=== PATIENT | female | born 1940 | race Caucasian/White ===

== ENCOUNTER 2022-02-23 16:57 | Emergency (ER) | payer MEDICARE, OTHER ==
--- NOTE | 2022-02-23 18:29 | ED ---
General Adult HPI - General Source: patient Mode of arrival: wheelchair Limitations: no limitations <Henrik Waite - Last Filed: 02/23/22 19:18> <Andrea Whitten - Last Filed: 02/24/22 07:08> <Greg Moreno Leonora - Last Filed: 02/24/22 14:36> <Rory Razo - Last Filed: 02/25/22 07:59> <Bora Mills - Last Filed: 02/28/22 15:24> - General Chief complaint: Psychiatric Symptoms Stated complaint: Petition Time Seen by Provider: 02/23/22 17:45 - History of Present Illness Initial comments: Dictation was produced using [employer] dictation software. please excuse any grammatical, word or spelling errors. Chief Complaint: 81-year-old female addition for EPS evaluation History of Present Illness: 81-year-old female presents to the emergency department via dictation. Patient allegedly has psychiatric history. She was petitioned by her cousin and guardian. Patient states that she does not schizophrenia and doesn't believe she needs to be taking psychiatric medications. Patient has no other complaints. The ROS documented in this emergency department record has been reviewed and co nfirmed by me. Those systems with pertinent positive or negative responses have been documented in the HPI. All other systems are other negative and/or noncontributory. PHYSICAL EXAM: General Impression: Alert and oriented x3, not in acute distress HEENT: Normocephalic atraumatic, extra-ocular movements intact, pupils equal and reactive to light bilaterally, mucous membranes moist. Cardiovascular: Heart regular rate and rhythm Chest: Able to complete full sentences, no retractions, no tachypnea Abdomen: abdomen soft, non-tender, non-distended, no organomegaly Musculoskeletal: Pulses present and equal in all extremities, no peripheral edema Motor: no focal deficits noted Neurological: CN II-XII grossly intact, no focal motor or sensory deficits noted Skin: Intact with no visualized rashes Psych: Normal affect and mood ED course: 81-year-old pleasant female presents to the ER for psych evaluation. Patient allegedly has history of psych disease. Vital Signs upon arrival are within acceptable limits. Patient is well-appearing at bedside. Labs unremarkable. Patient medically cleared for EPS evaluation. (Henrik Waite) - Related Data Allergies Allergy/AdvReac Type Severity Reaction Status Date / Time amoxicillin Allergy Unknown Verified 02/25/22 09:57 Penicillins Allergy Unknown Verified 02/25/22 09:57 Review of Systems ROS Other: All systems not noted in ROS Statement are negative. <Henrik Waite - Last Filed: 02/23/22 19:18> ROS Other: All systems not noted in ROS Statement are negative. <Andrea Whitten - Last Filed: 02/24/22 07:08> ROS Other: All systems not noted in ROS Statement are negative. <Greg Moreno - Last Filed: 02/24/22 14:36> ROS Other: All systems not noted in ROS Statement are negative. <Rory Razo - Last Filed: 02/25/22 07:59> ROS Other: All systems not noted in ROS Statement are negative. <Bora Mills - Last Filed: 02/28/22 15:24> ROS Statement: Those systems with pertinent positive or pertinent negative responses have been documented in the HPI. Past Medical History Past Medical History: Diabetes Mellitus, Hypertension History of Any Multi-Drug Resistant Organisms: None Reported Past Surgical History: Tonsillectomy Past Psychological History: Schizoaffective Disorder, Schizophrenia Smoking Status: Never smoker Past Alcohol Use History: None Reported Past Drug Use History: None Reported <Henrik Waite - Last Filed: 02/23/22 19:18> General Exam Limitations: no limitations <Henrik Waite - Last Filed: 02/23/22 19:18> Course Vital Signs 02/23/22 02/24/22 02/24/22 17:32 12:00 17:00 Temperature 98 F Pulse Rate 91 60 68 Respiratory 16 16 16 Rate Blood Pressure 192/102 160/80 136/80 O2 Sat by Pulse 98 98 98 Oximetry 02/24/22 02/25/22 02/25/22 22:09 01:10 02:00 Temperature Pulse Rate 68 Respiratory 16 16 16 Rate Blood Pressure O2 Sat by Pulse 98 Oximetry 02/25/22 02/25/22 02/25/22 03:03 11:00 12:00 Temperature 97.8 F Pulse Rate 63 Respiratory 16 18 20 Rate Blood Pressure 135/76 O2 Sat by Pulse 97 Oximetry 02/25/22 02/25/22 02/26/22 15:30 19:00 13:00 Temperature 97.8 F 98.0 F 98 F Pulse Rate 67 68 66 Respiratory 17 18 18 Rate Blood Pressure 137/78 140/80 136/74 O2 Sat by Pulse 98 99 99 Oximetry 02/27/22 02/27/22 09:03 19:00 Temperature 98.2 F 98.1 F Pulse Rate 74 87 Respiratory 18 17 Rate Blood Pressure 170/80 134/89 O2 Sat by Pulse 98 97 Oximetry Medical Decision Making - Lab Data Result diagrams: 02/23/22 18:33 02/23/22 18:33 <Henrik Waite - Last Filed: 02/23/22 19:18> - Lab Data Result diagrams: 02/23/22 18:33 02/23/22 18:33 <Andrea Whitten - Last Filed: 02/24/22 07:08> - Lab Data Result diagrams: 02/23/22 18:33 02/23/22 18:33 <Greg Moreno - Last Filed: 02/24/22 14:36> - Lab Data Result diagrams: 02/23/22 18:33 02/23/22 18:33 <Rory Razo - Last Filed: 02/25/22 07:59> - Lab Data Result diagrams: 02/23/22 18:33 02/23/22 18:33 <Bora Mills - Last Filed: 02/28/22 15:24> - Medical Decision Making 81-year-old female who had been petitioned for mental health evaluation. She been seen by previous physician and evaluated by EPS. She was felt to be safe for discharge from a mental health perspective. However I was informed by the nurse taking care of the patient that she did not have family able to pick her up and that her guardian was either not able or refusing to take the patient up. I was asked by the administrative nurse in charge to admit the patient to observation with social work on consult in an attempt to resolve these issues. (Greg Moreno) Patient seen by mental health services with plans for psychiatric transfer. Positive clinical certificate completed. (Rory Razo) Patient is pending transfer to inpatient psych. Clinical certification was updated by myself on 02/28/2022. (Gene,Bora) - Lab Data Lab Results 02/23/22 02/23/22 02/25/22 Range/Units 18:33 18:33 07:43 WBC 6.2 (3.8-10.6) k/uL RBC 4.99 (3.80-5.40) m/uL Hgb 15.5 (11.4-16.0) gm/dL Hct 49.0 H (34.0-46.0) % MCV 98.2 (80.0-100.0) fL MCH 31.0 (25.0-35.0) pg MCHC 31.6 (31.0-37.0) g/dL RDW 12.9 (11.5-15.5) % Plt Count 135 L (150-450) k/uL MPV 11.2 Neutrophils % 63 % Lymphocytes % 25 % Monocytes % 6 % Eosinophils % 3 % Basophils % 1 % Neutrophils # 3.9 (1.3-7.7) k/uL Lymphocytes # 1.5 (1.0-4.8) k/uL Monocytes # 0.4 (0-1.0) k/uL Eosinophils # 0.2 (0-0.7) k/uL Basophils # 0.1 (0-0.2) k/uL Manual Slide Review Performed Sodium 144 (137-145) mmol/L Potassium 3.7 (3.5-5.1) mmol/L Chloride 108 H (98-107) mmol/L Carbon Dioxide 23 (22-30) mmol/L Anion Gap 13 mmol/L BUN 18 H (7-17) mg/dL Creatinine 0.80 (0.52-1.04) mg/dL Est GFR (CKD-EPI)AfAm 80 (>60 ml/min/1.73 sqM) Est GFR (CKD-EPI)NonAf 70 (>60 ml/min/1.73 sqM) Glucose 147 H (74-99) mg/dL Calcium 10.0 (8.4-10.2) mg/dL Coronavirus (PCR) Not Detected (Not Detectd) Disposition <Henrik Waite - Last Filed: 02/23/22 19:18> Is patient prescribed a controlled substance at d/c from ED?: No <Andrea Whitten - Last Filed: 02/24/22 07:08> <Greg Moreno - Last Filed: 02/24/22 14:36> Is patient prescribed a controlled substance at d/c from ED?: No Time of Disposition: 08:00 <Rory Razo - Last Filed: 02/25/22 07:59> <Bora Mills - Last Filed: 02/28/22 15:24> Clinical Impression: Delusions, Psychosis Disposition: TRANSFER TO PSYCH HOSP/UNIT Condition: Fair Instructions (If sedation given, give patient instructions): Psychotic Disorder (ED) Referrals: Virgil Collier MD [Primary Care Provider] - 1-2 days
[2022-02-23 18:43] LABS: Basophils # (A) 0.1 k/uL (0-0.2); Basophils % (A) 1 %; Eosinophils # (A) 0.2 k/uL (0-0.7); Eosinophils % (A) 3 %; HGB 15.5 gm/dL (11.4-16.0); Lymphocytes # (A) 1.5 k/uL (1.0-4.8); Lymphocytes % (A) 25 %; MCHC 31.6 g/dL (31.0-37.0); MCV 98.2 fL (80.0-100.0); Mean Platelet Volume 11.2; Monocytes # (A) 0.4 k/uL (0-1.0); Monocytes % (A) 6 %; Neutrophils # (A) 3.9 k/uL (1.3-7.7); Neutrophils % (A) 63 %; Platelet Count 135 k/uL (150-450); RBC 4.99 m/uL (3.80-5.40); RDW 12.9 % (11.5-15.5); WBC 6.2 k/uL (3.8-10.6)
[2022-02-23 18:56] LABS: Potassium 3.7 mmol/L (3.5-5.1)
[2022-02-24] MEDS ORDERED: NALOXONE 0.4 MG/ML 1 ML VIAL IV PRN (14:36)
[2022-02-25] MEDS ORDERED: BISMUTH SUBSALICYLATE 4,192 MG/240 ML BOTTLE PO ONE (14:40)
[2022-02-25] MEDS ORDERED: FLUTICASONE 50MCG/SPRAY NASAL 16GM EA NOSTRIL PRN (15:58)
[2022-02-25] MEDS: metFORMIN 500 MG TAB PO SCH (22:50)
[2022-02-25] MEDS: LATANOPROST 0.005% OPHTH DROPS 2.5 ML BTL BOTH EYES SCH (22:51)
[2022-02-25] MEDS: DORZOLAMIDE HCL 2% DROPS 10 ML BTL BOTH EYES SCH (22:51)
[2022-02-26] MEDS ORDERED: amLODIPine 2.5 MG TAB PO SCH (09:00)
[2022-02-26] MEDS: metFORMIN 500 MG TAB PO SCH ×4 (10:43→20:55)
[2022-02-26] MEDS: amLODIPine 2.5 MG TAB PO SCH (10:43)
[2022-02-26] MEDS: DORZOLAMIDE HCL 2% DROPS 10 ML BTL BOTH EYES SCH ×2 (10:44→20:58)
[2022-02-26] MEDS: LATANOPROST 0.005% OPHTH DROPS 2.5 ML BTL BOTH EYES SCH (20:58)
[2022-02-27] MEDS: DORZOLAMIDE HCL 2% DROPS 10 ML BTL BOTH EYES SCH ×2 (08:56→20:42)
[2022-02-27] MEDS: metFORMIN 500 MG TAB PO SCH ×2 (09:05→20:42)
[2022-02-27] MEDS: amLODIPine 2.5 MG TAB PO SCH (09:05)
[2022-02-27] MEDS: LATANOPROST 0.005% OPHTH DROPS 2.5 ML BTL BOTH EYES SCH (20:42)
[2022-02-28] MEDS: metFORMIN 500 MG TAB PO SCH (08:55)
[2022-02-28] MEDS: amLODIPine 2.5 MG TAB PO SCH (08:56)
[2022-02-28] MEDS: DORZOLAMIDE HCL 2% DROPS 10 ML BTL BOTH EYES SCH (08:59)
[2022-02-28 18:31] VITALS: BP 155/86; PULSE 83; RESP 18; TEMP 97.9
== END 2022-02-28 20:00 ==
LOC: EEVIPCON 16:57 → EC 16:57
DX: F29 Unspecified psychosis not due to a substance or known physiological condition (principal); E11.9 Type 2 diabetes mellitus without complications; I10 Essential (primary) hypertension; Z20.822 Contact with and (suspected) exposure to COVID-19; Z88.0 Allergy status to penicillin
CPT/HCPCS: 36415; 80048; 82075; 85025; 87635; 93005; 99285